=== PATIENT | male | born 1985 | race African-American/Black ===

== ENCOUNTER 2018-07-20 10:18 | Emergency (ER) | payer MEDICAID ==
[~2018-07-20] VITALS: Ht 175.3 cm; Wt 68.0 kg
[2018-07-20 12:20] VITALS: BP 100/50
== END 2018-07-20 15:25 | disposition left against medical advice (07) ==
LOC: ER 10:41
DX: Z53.21 Procedure and treatment not carried out due to patient leaving prior to being seen by health care provider (principal)

== ENCOUNTER 2018-08-08 11:21 | Emergency (ER) | payer MEDICAID ==
[~2018-08-08] VITALS: Ht 170.2 cm; Wt 68.5 kg
[2018-08-08] MEDS ORDERED: HYDR1.5C TP (12:07)
[2018-08-08] MEDS ORDERED: DOXY100C2 PO (12:07)
[2018-08-08] MEDS ORDERED: L.AC1CAP6 PO (12:07)
[2018-08-08] MEDS ORDERED: CHLO473M2 MM (12:07)
[2018-08-08] MEDS ORDERED: METH4TAB17 PO (12:07)
[2018-08-08 12:08] VITALS: BP 105/62
== END 2018-08-08 19:30 | disposition left against medical advice (07) ==
LOC: ER 11:28
DX: Z53.21 Procedure and treatment not carried out due to patient leaving prior to being seen by health care provider (principal); F17.200 Nicotine dependence, unspecified, uncomplicated

== ENCOUNTER 2019-05-14 16:11 | Emergency (ER) | payer MEDICAID ==
[~2019-05-14] VITALS: Ht 177.8 cm; Wt 79.0 kg
[~2019-05-14 16:11] MED LIST: CHLO473M2 MM; DOXY100C2 PO; HYDR1.5C TP; L.AC1CAP6 PO; METH4TAB17 PO
[2019-05-14 16:27] VITALS: BP 118/72
== END 2019-05-14 17:19 | disposition home or self-care (01) ==
LOC: ER 16:11
DX: T16.2XXA Foreign body in left ear, initial encounter (principal); X58.XXXA Exposure to other specified factors, initial encounter; Y93.89 Activity, other specified; Y92.89 Other specified places as the place of occurrence of the external cause; Y99.8 Other external cause status; Z87.891 Personal history of nicotine dependence; F12.10 Cannabis abuse, uncomplicated; Z98.890 Other specified postprocedural states; Z79.899 Other long term (current) drug therapy
CPT/HCPCS: 99283; Z7610

== ENCOUNTER 2025-02-24 10:57 | Emergency (ER) | payer MEDICAID ==
[~2025-02-24] VITALS: Ht 172.7 cm; Wt 80.0 kg
[~2025-02-24 10:57] MED LIST changes: -DOXY100C2 PO; +DOXY100C5 PO
[2025-02-24 11:02] VITALS: TEMP 37; O2SAT 100
[2025-02-24] MEDS ORDERED: IBUP-1455 MT (12:27)
[2025-02-24] MEDS ORDERED: AMOX1TAB16 MT (12:27)
[2025-02-24 12:43] VITALS: BP 145/85; PULSE 60; RESP 16; O2SAT 100
== END 2025-02-24 12:44 | disposition home or self-care (01) ==
LOC: ER 11:05
DX: K04.7 Periapical abscess without sinus (principal); M26.622 Arthralgia of left temporomandibular joint; F12.90 Cannabis use, unspecified, uncomplicated
CPT/HCPCS: 99283